=== PATIENT | female | born 1960 | race Two or more races ===

== ENCOUNTER 2024-11-23 17:34 | Emergency (ER) | payer OTHER ==
[~2024-11-23] VITALS: Ht 162.6 cm; Wt 59.0 kg
[2024-11-23 19:21] LABS: BASO % 0.3 % (0.1-1.2); EOS # 0.11 (0.04-0.54); EOS % 1.0 % (0.7-7.0); LYMPH # 1.48 (1.18-3.74); LYMPH % 12.9 % (19.3-53.1); MEAN PLATELET VOLUME 9.50 fl (9.4-12.4); MONO # 0.69 (0.24-0.82); MONO % 6.0 % (4.7-12.5); NEUT # 9.17 (1.56-6.13); NEUT % 79.6 % (34.0-71.1); RED CELL DISTRIBUTION WIDTH 12.9 % (11.6-14.4)
[2024-11-23 20:01] LABS: ALT/SGPT 21.0 U/L (12-78); AST/SGOT 21.0 U/L (15-37); BILIRUBIN TOTAL 0.54 mg/dL (0.3-1.2); BUN CREA RATIO 28.0 (7.0-25.0); CREATININE SERUM 0.98 mg/dL (0.55-1.02); GFR 57.32; GLOBULINA 3.5 G/DL (2.4-3.5); GLUCOSE FASTING 108.0 mg/dL (65-100); OSMOLALITY SERUM 292.0 MOSM/KG (275-295)
[2024-11-23 20:07] LABS: URINE APPEARANCE Cloudy; URINE BILIRRUBIN Negative (NEGATIVE); URINE BLOOD Large; URINE COLOR Yellow; URINE GLUCOSE Negative (NEGATIVE); URINE KETONE Trace (NEGATIVE); URINE LEUKOCYTE Trace; URINE NITRATE Negative; URINE UROBILINOGEN 0.2 E.U./dl
[2024-11-23 20:08] LABS: URINE BACTERIA 143.9 uL (0.0-1933); URINE CAST 0.00 uL (0.0-1.40); URINE EPITHELIAL CELLS 0.0 uL (0.0-38.8); URINE PROTEIN 300 (NEGATIVE); URINE RBC 225.5 uL (0.0-20.8); URINE WBC 2.7 uL (0.0-23.2)
[2024-11-23] MEDS ORDERED: CIPRO500 MG PO (21:26)
[2024-11-23] MEDS ORDERED: INTESTINEX680 M1 PO (21:26)
[2024-11-23] MEDS ORDERED: CEFTRIAXONE SODIUM 1,000 MG VIAL IM ONE (22:00)
[2024-11-23] MEDS ORDERED: LIDOCAINE HCL/MPF 1% 5ML VIAL IJ ONE (22:06)
[2024-11-23] MEDS ORDERED: CEFTRIAXONE SODIUM 1,000 MG VIAL ONE (22:06)
== END 2024-11-23 22:34 | disposition home or self-care (01) ==
LOC: ER 17:35
PROVIDERS: General Practice
DX: R31.9 Hematuria, unspecified (principal)